=== PATIENT | female | born 1985 | race Caucasian/White ===

== ENCOUNTER 2023-04-03 16:00 | Outpatient (CLI) | payer OTHER ==
[2023-04-03] MEDS ORDERED: PRENATABS RX T1 EACH PO (17:30)
[2023-04-03] MEDS ORDERED: SYNTHROID112 MCG PO (17:31)
[2023-04-03] MEDS ORDERED: FE C TABLET1 EACH PO (17:32)
[2023-04-03] MEDS ORDERED: VITAMIN C500 M6 PO (17:32)
== END 2023-04-03 16:58 | disposition home or self-care (01) ==
LOC: NST 16:00
PROVIDERS: ATTEND Obstetrics & Gynecology
DX: Z34.83 Encounter for supervision of other normal pregnancy, third trimester (principal)

== ENCOUNTER 2023-04-03 17:01 | Inpatient (IN) | payer OTHER ==
[~2023-04-03] VITALS: Ht 157.5 cm; Wt 70.8 kg
[2023-04-03] MEDS ORDERED: PRENATABS RX T1 EACH PO (17:30)
[2023-04-03] MEDS ORDERED: SYNTHROID112 MCG PO (17:31)
[2023-04-03] MEDS ORDERED: FE C TABLET1 EACH PO (17:32)
[2023-04-03] MEDS ORDERED: VITAMIN C500 M6 PO (17:32)
== END 2023-04-05 09:40 | disposition home or self-care (01) | DRG 833 ==
LOC: LDR 17:01
PROVIDERS: ADMIT Obstetrics & Gynecology; ATTEND Obstetrics & Gynecology
PROC: 4A1HXCZ Monitoring of Products of Conception, Cardiac Rate, External Approach (ICD-10-PCS; principal; 2023-04-03)
DX: O36.8330 Maternal care for abnormalities of the fetal heart rate or rhythm, third trimester, not applicable or unspecified (principal); Z3A.35 35 weeks gestation of pregnancy; Z20.822 Contact with and (suspected) exposure to COVID-19

== ENCOUNTER 2023-04-06 22:29 | Inpatient (IN) | payer OTHER ==
[~2023-04-06] VITALS: Ht 157.5 cm; Wt 70.8 kg
[~2023-04-06 22:29] MED LIST: FE C TABLET1 EACH PO; PRENATABS RX T1 EACH PO; SYNTHROID112 MCG PO; VITAMIN C500 M6 PO
== END 2023-04-09 10:16 | disposition home or self-care (01) | DRG 805 ==
LOC: LDR 22:29 → OB/GYN 04-07 10:02
PROVIDERS: ADMIT Obstetrics & Gynecology Gynecology; ATTEND Obstetrics & Gynecology Gynecology
PROC: 4A1HXCZ Monitoring of Products of Conception, Cardiac Rate, External Approach (ICD-10-PCS; 2023-04-06)
PROC: 10E0XZZ Delivery of Products of Conception, External Approach (ICD-10-PCS; principal; 2023-04-07)
PROC: 0KQM0ZZ Repair Perineum Muscle, Open Approach (ICD-10-PCS; 2023-04-07)
DX: O70.1 Second degree perineal laceration during delivery (principal); O41.1230 Chorioamnionitis, third trimester, not applicable or unspecified; Z37.0 Single live birth; O41.1430 Placentitis, third trimester, not applicable or unspecified; Z3A.36 36 weeks gestation of pregnancy; Z20.822 Contact with and (suspected) exposure to COVID-19